=== PATIENT | female | born 1980 | race Caucasian/White ===

== ENCOUNTER 2017-06-09 06:16 | Day surgery (SDC) | payer OTHER ==
[2017-06-09 06:34] VITALS: BMI 28.7
[2017-06-09] MEDS ORDERED: KETAMINE HCL 500 MG/10 ML VIAL ONE (07:11)
[2017-06-09 08:11] VITALS: TEMP 97.5
[2017-06-09 08:38] VITALS: BP 98/71; PULSE 62
== END 2017-06-09 08:54 | disposition home or self-care (01) ==
LOC: FECT 06:16
PROVIDERS: ATTEND Psychiatry & Neurology Psychiatry
PROC: GZB4ZZZ Other Electroconvulsive Therapy (ICD-10-PCS; principal; 2017-06-09 07:00)
DX: F33.2 Major depressive disorder, recurrent severe without psychotic features (principal)
CPT/HCPCS: 90870; 94760

== ENCOUNTER 2017-06-11 05:47 | Day surgery (SDC) | payer OTHER ==
[2017-06-07 10:33] VITALS: BMI 24.7
[2017-06-11] MEDS ORDERED: KETAMINE HCL 500 MG/10 ML VIAL ONE (08:23)
[2017-06-11 09:19] VITALS: TEMP 98
[2017-06-11 09:55] VITALS: BP 108/64; PULSE 62
== END 2017-06-11 10:10 | disposition home or self-care (01) ==
LOC: FECT 05:47
PROVIDERS: ATTEND Psychiatry & Neurology Psychiatry
PROC: GZB4ZZZ Other Electroconvulsive Therapy (ICD-10-PCS; principal; 2017-06-11 07:45)
DX: F33.2 Major depressive disorder, recurrent severe without psychotic features (principal)
CPT/HCPCS: 84703; 90870; 94760

== ENCOUNTER 2017-06-16 05:41 | Day surgery (SDC) | payer OTHER ==
[2017-06-10 15:26] VITALS: BMI 28.7
[2017-06-16] MEDS ORDERED: KETAMINE HCL 500 MG/10 ML VIAL ONE (07:29)
[2017-06-16 08:24] VITALS: TEMP 98.3
[2017-06-16 10:06] VITALS: BP 104/67; PULSE 62
== END 2017-06-16 09:15 | disposition home or self-care (01) ==
LOC: FECT 05:41
PROVIDERS: ATTEND Psychiatry & Neurology Psychiatry
PROC: GZB4ZZZ Other Electroconvulsive Therapy (ICD-10-PCS; principal; 2017-06-16 07:00)
DX: F33.2 Major depressive disorder, recurrent severe without psychotic features (principal)
CPT/HCPCS: 84703; 90870; 94760

== ENCOUNTER 2017-07-02 05:43 | Day surgery (SDC) | payer OTHER ==
[2017-07-02 08:33] VITALS: BMI 28.3
[2017-07-02] MEDS ORDERED: KETAMINE HCL 500 MG/10 ML VIAL ONE (09:28)
[2017-07-02 10:54] VITALS: TEMP 98.2
[2017-07-02 11:04] VITALS: BP 108/64; PULSE 62
== END 2017-07-02 11:05 | disposition home or self-care (01) ==
LOC: FECT 05:43
PROVIDERS: ATTEND Psychiatry & Neurology Psychiatry
PROC: GZB4ZZZ Other Electroconvulsive Therapy (ICD-10-PCS; principal; 2017-07-02 07:00)
DX: F33.2 Major depressive disorder, recurrent severe without psychotic features (principal)
CPT/HCPCS: 84703; 90870; 94760

== ENCOUNTER 2017-07-09 05:47 | Day surgery (SDC) | payer OTHER | END 2017-07-09 10:05 | disposition home or self-care (01) | LOC: FECT 05:47 | PROC: GZB4ZZZ Other Electroconvulsive Therapy (ICD-10-PCS; principal; 2017-07-09) | DX: F33.2 Major depressive disorder, recurrent severe without psychotic features (principal) | CPT/HCPCS: 84703; 90870; 94760 ==

== ENCOUNTER 2017-07-19 07:53 | Day surgery (SDC) | payer OTHER ==
[2017-07-19 08:18] VITALS: BMI 25.6
[2017-07-19] MEDS ORDERED: KETAMINE HCL 500 MG/10 ML VIAL ONE (08:40)
[2017-07-19 10:24] VITALS: TEMP 98.2
[2017-07-19 11:27] VITALS: BP 108/52; PULSE 56
== END 2017-07-19 10:30 | disposition home or self-care (01) ==
LOC: FECT 07:53
PROVIDERS: ATTEND Psychiatry & Neurology Psychiatry
PROC: GZB4ZZZ Other Electroconvulsive Therapy (ICD-10-PCS; principal; 2017-07-19 08:15)
DX: F33.2 Major depressive disorder, recurrent severe without psychotic features (principal)
CPT/HCPCS: 84703; 90870; 94760

== ENCOUNTER 2017-08-03 05:41 | Day surgery (SDC) | payer OTHER ==
[2017-08-03] MEDS ORDERED: ACETAMINOPHEN 325 MG TABLET (FP) PO PRN (07:18)
[2017-08-03] MEDS ORDERED: ONDANSETRON 4 MG/2 ML VIAL IVPUSH PRN (07:18)
[2017-08-03 08:00] VITALS: BMI 26.3
[2017-08-03] MEDS ORDERED: KETAMINE HCL 500 MG/10 ML VIAL ONE (08:55)
[2017-08-03 10:02] VITALS: TEMP 97.8
[2017-08-03 10:49] VITALS: BP 100/62; PULSE 51
== END 2017-08-03 10:53 | disposition home or self-care (01) ==
LOC: FECT 05:41
PROVIDERS: ATTEND Psychiatry & Neurology Psychiatry
PROC: GZB4ZZZ Other Electroconvulsive Therapy (ICD-10-PCS; principal; 2017-08-03 07:00)
DX: F33.2 Major depressive disorder, recurrent severe without psychotic features (principal)
CPT/HCPCS: 84703; 90870; 94760

== ENCOUNTER 2019-01-09 06:41 | Day surgery (SDC) | payer OTHER ==
--- NOTE | 2019-01-09 07:28 | HP ---
CHIEF COMPLAINT: MDD PCP: Dr. Nolan Morgan Primary Psychiatrist: Dr. Castro HISTORY OF PRESENT ILLNESS: 38 year old F with h/o depression presents for ECT therapy. Last session July 2017. Recent Events: no major events. Patient reports continued depressive symptoms, + SI without active plan. She also suffers from insomnia and decreased appetite. PAST MEDICAL HISTORY: MDD PAST SURGICAL HISTORY: none Social History: Smoking: denies Alcohol: denies Drugs: denies Allergies: NKDA EKG 01/09/2019: NSR 76bpm, no acute changes Labs: on file (10/07/2018) Urine HCG 01/09/2019: negative FMHX Mother alive (60) well Father alive ( 60) HTN Sister alive (30) well Sister alive (38) well Brother alive (28) well Brother alive (25) well Brother alive (22) well HOME MEDICATIONS: Home Medications Medication Instructions Recorded Ergocalciferol (Vitamin D2) 2,000 unit PO DAILY 06/04/17 [Vitamin D2] Multivitamins [Multivit ([facility] 1 tab PO DAILY 06/04/17 Formulary)] Cannabidiol (Cbd) Extract 0.25 mg PO BID 01/06/19 [Epidiolex] clonazePAM [Klonopin -] 0.5 mg PO PRN PRN 01/06/19 REVIEW OF SYSTEMS CONSTITUTIONAL: Absent: fever, chills, diaphoresis, generalized weakness, malaise, loss of appetite, weight change HEENT: Absent: rhinorrhea, nasal congestion, throat pain, throat swelling, difficulty swallowing, mouth swelling, ear pain, eye pain, visual changes CARDIOVASCULAR: Absent: chest pain, syncope, palpitations, irregular heart rate, lightheadedness , peripheral edema RESPIRATORY: Absent: cough, shortness of breath, dyspnea with exertion, orthopnea, wheezing, stridor, hemoptysis GASTROINTESTINAL: Absent: abdominal pain, abdominal distension, nausea, vomiting, diarrhea, constipation, melena, hematochezia GENITOURINARY: Absent: dysuria, frequency, urgency, hesitancy, hematuria, flank pain, genital pain MUSCULOSKELETAL: Absent: myalgia, arthralgia, joint swelling, back pain, neck pain SKIN: Absent: rash, itching, pallor HEMATOLOGIC/IMMUNOLOGIC: Absent: easy bleeding, easy bruising, lymphadenopathy, frequent infections ENDOCRINE: Absent: unexplained weight gain, unexplained weight loss, heat intolerance, cold intolerance NEUROLOGIC: Absent: headache, focal weakness or paresthesias, dizziness, unsteady gait, seizure, mental status changes, bladder or bowel incontinence PHYSICAL EXAMINATION: GENERAL: Awake, alert, and fully oriented, in no acute distress. HEAD: Normal with no signs of trauma. EYES: Pupils equal, round and reactive to light, sclera anicteric, conjunctiva clear. LUNGS: Breath sounds equal, clear to auscultation bilaterally. No wheezes, and no crackles. No accessory muscle use. HEART: Regular rate and rhythm, normal S1 and S2 ABDOMEN: Soft, nontender, not distended MUSCULOSKELETAL: Normal range of motion at all joints. No bony deformities or tenderness. No CVA tenderness. UPPER EXTREMITIES: 2+ pulses, warm, well-perfused. No cyanosis. No clubbing. No peripheral edema. LOWER EXTREMITIES: 2+ pulses, warm, well-perfused. No calf tenderness. No peripheral edema. NEUROLOGICAL: Cranial nerves II-XII intact. Speech slow and pressured. ASSESSMENT/PLAN: 38 year old F with longstanding major depressive disorder, presents today for ECT due to progressive symptoms. Patient medically stable to undergo ECT. Cardiac --no cardiac history --Revised Cardiac Risk Index for Pre-Operative Risk: 0 points, 0.4% risk of major cardiac event Pulmonary --no pulmonary history Neurological --no neurological or neurosurgical history; no history of trauma Anesthesia --no reported problems with anesthesia ECT is a low risk procedure. The relative benefits of the planned procedure outweigh the relative risks for this patient at this time. Problem List - Problem (1) MDD (major depressive disorder) Assessment/Plan: stable for ECT today Code(s): F32.9 - MAJOR DEPRESSIVE DISORDER, SINGLE EPISODE, UNSPECIFIED Qualifiers: Major depression recurrence: recurrent Active/Remission status: currently active Major depression episode severity: severe Visit type - Emergency Visit Emergency Visit: No - New Patient This patient is new to me today: Yes Date on this admission: 01/09/19 - Critical Care Critical Care patient: No
[2019-01-09 07:40] VITALS: BMI 33.7
[2019-01-09] MEDS ORDERED: KETAMINE HCL 500 MG/10 ML VIAL ONE (08:29)
[2019-01-09 09:35] VITALS: TEMP 98.6
[2019-01-09 10:52] VITALS: BP 124/76; PULSE 76
--- NOTE | 2019-01-09 15:52 | EKG ---
Test Reason : Blood Pressure : / mmHG Vent. Rate : 076 BPM Atrial Rate : 076 BPM P-R Int : 144 ms QRS Dur : 086 ms QT Int : 398 ms P-R-T Axes : 055 050 001 degrees QTc Int : 447 ms NORMAL SINUS RHYTHM POSSIBLE LEFT ATRIAL ENLARGEMENT CANNOT RULE OUT ANTERIOR INFARCT , AGE UNDETERMINED ABNORMAL ECG WHEN COMPARED WITH ECG OF 07-JUN-2017 06:52, T WAVE VARIATION Confirmed by CODI ENCARNACION, RUDOLPH ([id number]) on 01/09/2019 3:52:28 PM Referred By: Efrem Simmons Confirmed By:RUDOLPH KINCAID MD
== END 2019-01-09 10:30 | disposition home or self-care (01) ==
LOC: FECT 06:41
PROVIDERS: ATTEND Psychiatry & Neurology Psychiatry
PROC: GZB4ZZZ Other Electroconvulsive Therapy (ICD-10-PCS; principal; 2019-01-09 08:00)
DX: F33.2 Major depressive disorder, recurrent severe without psychotic features (principal)
CPT/HCPCS: 84703; 90870; 93005; 94760

== ENCOUNTER 2019-01-11 05:46 | Day surgery (SDC) | payer OTHER ==
[2019-01-11 07:14] VITALS: TEMP 98.1; BMI 33.7
[2019-01-11] MEDS ORDERED: KETAMINE HCL 500 MG/10 ML VIAL ONE (07:45)
[2019-01-11] MEDS ORDERED: ACETAMINOPHEN 500 MG TABLET (FP) PO PRN (07:59)
[2019-01-11] MEDS ORDERED: PROMETHAZINE HCL 25 MG/1 ML VIAL IVPUSH PRN (07:59)
[2019-01-11] MEDS ORDERED: LACTATED RINGERS SOLUTION 1,000 ML IV SCH (08:00)
[2019-01-11] MEDS ORDERED: LORazepam 0.5 MG TABLET ONE (09:30)
[2019-01-11 11:36] VITALS: BP 116/64; PULSE 68
== END 2019-01-11 11:00 | disposition home or self-care (01) ==
LOC: FECT 05:46
PROVIDERS: ATTEND Psychiatry & Neurology Psychiatry
PROC: GZB4ZZZ Other Electroconvulsive Therapy (ICD-10-PCS; principal; 2019-01-11 07:15)
DX: F32.9 Major depressive disorder, single episode, unspecified (principal)
CPT/HCPCS: 90870; 94760

== ENCOUNTER 2019-01-13 05:42 | Day surgery (SDC) | payer OTHER ==
[2019-01-09 10:08] VITALS: BMI 33.6
[2019-01-13] MEDS ORDERED: KETAMINE HCL 500 MG/10 ML VIAL ONE (07:47)
[2019-01-13 09:22] VITALS: TEMP 97.8
[2019-01-13] MEDS ORDERED: LORazepam 0.5 MG TABLET ONE (09:30)
[2019-01-13 09:42] VITALS: BP 102/65; PULSE 87
== END 2019-01-13 10:00 | disposition home or self-care (01) ==
LOC: FECT 05:42
PROVIDERS: ATTEND Psychiatry & Neurology Psychiatry
PROC: GZB4ZZZ Other Electroconvulsive Therapy (ICD-10-PCS; principal; 2019-01-13 07:30)
DX: F32.9 Major depressive disorder, single episode, unspecified (principal)
CPT/HCPCS: 81025; 90870; 94760

== ENCOUNTER 2019-01-19 05:52 | Day surgery (SDC) | payer OTHER ==
[2019-01-19 06:36] VITALS: BMI 33.6
[2019-01-19] MEDS ORDERED: KETAMINE HCL 500 MG/10 ML VIAL ONE (07:12)
[2019-01-19 09:28] VITALS: TEMP 98.4
[2019-01-19] MEDS ORDERED: LORazepam 0.5 MG TABLET ONE (09:52)
[2019-01-19] MEDS ORDERED: ACETAMINOPHEN 325 MG TABLET (FP) PO PRN (10:14)
[2019-01-19 11:00] VITALS: BP 115/66; PULSE 61
== END 2019-01-19 10:15 | disposition home or self-care (01) ==
LOC: FECT 05:52
PROVIDERS: ATTEND Psychiatry & Neurology Psychiatry
PROC: GZB4ZZZ Other Electroconvulsive Therapy (ICD-10-PCS; principal; 2019-01-19 08:30)
DX: F33.2 Major depressive disorder, recurrent severe without psychotic features (principal)
CPT/HCPCS: 81025; 90870; 94760

== ENCOUNTER 2019-01-20 06:16 | Day surgery (SDC) | payer OTHER ==
[2019-01-20 06:54] VITALS: BMI 33.6
[2019-01-20] MEDS ORDERED: KETAMINE HCL 500 MG/10 ML VIAL ONE (07:31)
[2019-01-20] MEDS ORDERED: LACTATED RINGERS SOLUTION 1,000 ML IV SCH (08:00)
[2019-01-20 08:46] VITALS: TEMP 98.5
[2019-01-20 08:51] VITALS: BP 121/71; PULSE 78
== END 2019-01-20 09:45 | disposition home or self-care (01) ==
LOC: FECT 06:16
PROVIDERS: ATTEND Psychiatry & Neurology Psychiatry
PROC: GZB4ZZZ Other Electroconvulsive Therapy (ICD-10-PCS; principal; 2019-01-20 08:30)
DX: F33.2 Major depressive disorder, recurrent severe without psychotic features (principal)
CPT/HCPCS: 90870; 94760

== ENCOUNTER 2019-01-23 07:44 | Day surgery (SDC) | payer OTHER ==
[2019-01-23 06:42] VITALS: BMI 33.6
[2019-01-23] MEDS ORDERED: KETAMINE HCL 500 MG/10 ML VIAL ONE (07:46)
[2019-01-23 08:59] VITALS: TEMP 97.5
[2019-01-23 09:33] VITALS: BP 110/70; PULSE 73
== END 2019-01-23 09:50 | disposition home or self-care (01) ==
LOC: FECT 07:44
PROVIDERS: ATTEND Psychiatry & Neurology Psychiatry
PROC: GZB4ZZZ Other Electroconvulsive Therapy (ICD-10-PCS; principal; 2019-01-23 07:30)
DX: F33.2 Major depressive disorder, recurrent severe without psychotic features (principal)
CPT/HCPCS: 81025; 90870; 94760

== ENCOUNTER 2019-01-25 05:31 | Day surgery (SDC) | payer OTHER ==
[2019-01-25] MEDS: LORazepam 0.5 MG TABLET ONE ×2 (06:40→06:54)
[2019-01-25 06:47] VITALS: BMI 32.8
[2019-01-25] MEDS ORDERED: KETAMINE HCL 500 MG/10 ML VIAL ONE (07:10)
[2019-01-25 07:11] VITALS: TEMP 98
[2019-01-25 09:09] VITALS: BP 106/60; PULSE 67
== END 2019-01-25 09:15 | disposition home or self-care (01) ==
LOC: FECT 05:31
PROVIDERS: ATTEND Psychiatry & Neurology Psychiatry
PROC: GZB4ZZZ Other Electroconvulsive Therapy (ICD-10-PCS; principal; 2019-01-25 07:15)
DX: F32.9 Major depressive disorder, single episode, unspecified (principal)
CPT/HCPCS: 90870; 94760

== ENCOUNTER 2019-01-27 05:25 | Day surgery (SDC) | payer OTHER ==
[2019-01-27] MEDS ORDERED: KETAMINE HCL 500 MG/10 ML VIAL ONE ×2 (08:47→08:55)
[2019-01-27 10:08] VITALS: TEMP 97.9
[2019-01-27 11:30] VITALS: BP 114/70; PULSE 72
== END 2019-01-27 11:00 | disposition home or self-care (01) ==
LOC: FECT 05:25
PROVIDERS: ATTEND Psychiatry & Neurology Psychiatry
PROC: GZB4ZZZ Other Electroconvulsive Therapy (ICD-10-PCS; principal; 2019-01-27 07:15)
DX: F32.9 Major depressive disorder, single episode, unspecified (principal)
CPT/HCPCS: 84703; 90870; 94760

== ENCOUNTER 2019-01-30 05:45 | Day surgery (SDC) | payer OTHER ==
[2019-01-30 06:54] VITALS: BMI 32.3
[2019-01-30] MEDS ORDERED: KETAMINE HCL 500 MG/10 ML VIAL ONE (07:21)
[2019-01-30] MEDS ORDERED: ACETAMINOPHEN 325 MG TABLET (FP) PO PRN (07:44)
[2019-01-30] MEDS ORDERED: ONDANSETRON 4 MG/2 ML VIAL IVPUSH PRN (07:44)
[2019-01-30] MEDS ORDERED: LACTATED RINGERS SOLUTION 1,000 ML IV SCH (07:45)
[2019-01-30 08:48] VITALS: TEMP 98.3
[2019-01-30 09:45] VITALS: BP 107/62; PULSE 68
== END 2019-01-30 09:47 | disposition home or self-care (01) ==
LOC: FECT 05:45
PROVIDERS: ATTEND Psychiatry & Neurology Psychiatry
PROC: GZB4ZZZ Other Electroconvulsive Therapy (ICD-10-PCS; principal; 2019-01-30 07:15)
DX: F33.2 Major depressive disorder, recurrent severe without psychotic features (principal)
CPT/HCPCS: 90870; 94760

== ENCOUNTER 2019-02-01 05:42 | Day surgery (SDC) | payer OTHER ==
[2019-02-01 06:46] VITALS: BMI 32.3
[2019-02-01] MEDS ORDERED: KETAMINE HCL 500 MG/10 ML VIAL ONE (07:31)
[2019-02-01 07:57] VITALS: TEMP 98.3
[2019-02-01 09:32] VITALS: BP 104/67; PULSE 86
== END 2019-02-01 09:15 | disposition home or self-care (01) ==
LOC: FECT 05:42
PROVIDERS: ATTEND Psychiatry & Neurology Psychiatry
PROC: GZB4ZZZ Other Electroconvulsive Therapy (ICD-10-PCS; principal; 2019-02-01 07:00)
DX: F32.9 Major depressive disorder, single episode, unspecified (principal)
CPT/HCPCS: 81025; 90870; 94760

== ENCOUNTER 2019-02-03 05:35 | Day surgery (SDC) | payer OTHER ==
[2019-02-03 07:36] VITALS: BMI 32.3
[2019-02-03] MEDS ORDERED: KETAMINE HCL 500 MG/10 ML VIAL ONE (08:12)
[2019-02-03 09:22] VITALS: TEMP 97.7
[2019-02-03 09:45] VITALS: BP 101/69; PULSE 72
== END 2019-02-03 09:50 | disposition home or self-care (01) ==
LOC: FECT 05:35
PROVIDERS: ATTEND Psychiatry & Neurology Psychiatry
PROC: GZB4ZZZ Other Electroconvulsive Therapy (ICD-10-PCS; principal; 2019-02-03 07:00)
DX: F33.2 Major depressive disorder, recurrent severe without psychotic features (principal)
CPT/HCPCS: 90870; 94760

== ENCOUNTER 2019-02-06 05:45 | Day surgery (SDC) | payer OTHER ==
[2019-01-23 17:31] VITALS: BMI 33.6
[2019-02-06 09:18] VITALS: TEMP 98.5
[2019-02-06 09:21] VITALS: BP 112/74; PULSE 84
--- NOTE | 2019-02-06 18:42 | HP ---
CHIEF COMPLAINT: Major depressive disorder PCP: Dr. Nolan Morgan Primary Psychiatrist: Dr. Castro HISTORY OF PRESENT ILLNESS: 38 year-old female with a PMH significant for major depressive disorder. ECT treatments date to 2018. Presents today for ECT. Recent events * none reported PAST MEDICAL HISTORY: Major depressive disorder PAST SURGICAL HISTORY: None reported Social History: lives with Smoking: denies Alcohol: denies Drugs: denies Allergies: NKDA Family history: Mother alive (60) well Father alive ( 60) HTN Sister alive (30) well Sister alive (38) well Brother alive (28) well Brother alive (25) well Brother alive (22) well Allergies No Known Drug Allergies Allergy (Verified 06/10/17 14:55) HOME MEDICATIONS: Home Medications Medication Instructions Recorded clonazePAM [Klonopin -] 0.5 mg PO PRN PRN 01/06/19 Aripiprazole [Abilify] 5 mg PO DAILY 01/25/19 Sertraline HCl [Zoloft] 50 mg PO DAILY 01/25/19 REVIEW OF SYSTEMS CONSTITUTIONAL: Absent: fever, chills, diaphoresis, generalized weakness, malaise, loss of appetite, weight change HEENT: Absent: rhinorrhea, nasal congestion, throat pain, throat swelling, difficulty swallowing, mouth swelling, ear pain, eye pain, visual changes CARDIOVASCULAR: Absent: chest pain, syncope, palpitations, irregular heart rate, lightheadedness , peripheral edema RESPIRATORY: Absent: cough, shortness of breath, dyspnea with exertion, orthopnea, wheezing, stridor, hemoptysis GASTROINTESTINAL: Absent: abdominal pain, abdominal distension, nausea, vomiting, diarrhea, constipation, melena, hematochezia GENITOURINARY: Absent: dysuria, frequency, urgency, hesitancy, hematuria, flank pain, genital pain MUSCULOSKELETAL: Absent: myalgia, arthralgia, joint swelling, back pain, neck pain SKIN: Absent: rash, itching, pallor HEMATOLOGIC/IMMUNOLOGIC: Absent: easy bleeding, easy bruising, lymphadenopathy, frequent infections ENDOCRINE: Absent: unexplained weight gain, unexplained weight loss, heat intolerance, cold intolerance NEUROLOGIC: Absent: headache, focal weakness or paresthesias, dizziness, unsteady gait, seizure, mental status changes, bladder or bowel incontinence PHYSICAL EXAMINATION Vital Signs - 24 hr 02/06/19 02/06/19 02/06/19 07:21 08:20 08:25 Temperature 98.2 F Pulse Rate 85 91 H 102 H Respiratory 18 14 16 Rate Blood Pressure 103/69 121/76 132/95 O2 Sat by Pulse 98 98 98 Oximetry (%) 02/06/19 02/06/19 02/06/19 08:30 08:35 08:50 Temperature Pulse Rate 92 H 89 87 Respiratory 14 17 17 Rate Blood Pressure 123/77 127/77 126/71 O2 Sat by Pulse 97 98 100 Oximetry (%) 02/06/19 02/06/19 02/06/19 09:00 09:30 10:00 Temperature 98.5 F 98.5 F 98.5 F Pulse Rate 81 84 84 Respiratory 18 18 18 Rate Blood Pressure 118/77 112/74 112/74 O2 Sat by Pulse 99 99 Oximetry (%) GENERAL: Awake, alert, and fully oriented, in no acute distress. HEAD: Normal with no signs of trauma. EYES: Pupils equal, round and reactive to light, sclera anicteric, conjunctiva clear. LUNGS: Breath sounds equal, clear to auscultation bilaterally. No wheezes, and no crackles. No accessory muscle use. HEART: Regular rate and rhythm, normal S1 and S2 ABDOMEN: Soft, nontender, not distended MUSCULOSKELETAL: Normal range of motion at all joints. No bony deformities or tenderness. No CVA tenderness. UPPER EXTREMITIES: 2+ pulses, warm, well-perfused. No cyanosis. No clubbing. No peripheral edema. LOWER EXTREMITIES: 2+ pulses, warm, well-perfused. No calf tenderness. No peripheral edema. NEUROLOGICAL: Cranial nerves II-XII intact. Normal speech. ASSESSMENT/PLAN: 38 year-old female with a PMH significant for major depressive disorder. Presents today for ECT. Cardiac --no cardiac history --Revised Cardiac Risk Index for Pre-Operative Risk: 0 points, 0.4% risk of major cardiac event Pulmonary --no pulmonary history Neurological --no neurological or neurosurgical history; no history of trauma Anesthesia --no reported problems with anesthesia ECT is a low risk procedure. The relative benefits of the planned procedure outweigh the relative risks for this patient at this time. Visit type - Emergency Visit Emergency Visit: No - New Patient This patient is new to me today: Yes Date on this admission: 02/06/19 - Critical Care Critical Care patient: No
== END 2019-02-06 10:00 | disposition home or self-care (01) ==
LOC: FECT 05:45
PROVIDERS: ATTEND Psychiatry & Neurology Psychiatry
PROC: GZB4ZZZ Other Electroconvulsive Therapy (ICD-10-PCS; principal; 2019-02-06 07:15)
DX: F33.2 Major depressive disorder, recurrent severe without psychotic features (principal)
CPT/HCPCS: 81025; 90870; 94760

== ENCOUNTER 2019-02-08 05:40 | Day surgery (SDC) | payer OTHER ==
[2019-02-08 07:18] VITALS: TEMP 98.4; BMI 33.6
[2019-02-08] MEDS ORDERED: KETAMINE HCL 500 MG/10 ML VIAL ONE (07:56)
[2019-02-08 10:04] VITALS: BP 108/71; PULSE 66
== END 2019-02-08 09:45 | disposition home or self-care (01) ==
LOC: FECT 05:40
PROVIDERS: ATTEND Psychiatry & Neurology Psychiatry
PROC: GZB4ZZZ Other Electroconvulsive Therapy (ICD-10-PCS; principal; 2019-02-08 07:00)
DX: F33.2 Major depressive disorder, recurrent severe without psychotic features (principal)
CPT/HCPCS: 90870; 94760

== ENCOUNTER 2020-03-07 09:23 | Day surgery (SDC) | payer OTHER ==
[2020-03-06 13:22] VITALS: BMI 29.2
[2020-03-07 10:40] VITALS: TEMP 98.5
[2020-03-07] MEDS ORDERED: KETAMINE HCL 500 MG/10 ML VIAL ONE (11:45)
[2020-03-07] MEDS ORDERED: ONDANSETRON 4 MG/2 ML VIAL IVPUSH PRN (12:14)
[2020-03-07] MEDS ORDERED: LACTATED RINGERS SOLUTION 1,000 ML IV SCH (12:15)
[2020-03-07 13:15] VITALS: BP 120/66; PULSE 64
== END 2020-03-07 13:17 | disposition home or self-care (01) ==
LOC: FECT 09:23
PROVIDERS: ATTEND Psychiatry & Neurology Psychiatry
PROC: GZB4ZZZ Other Electroconvulsive Therapy (ICD-10-PCS; principal; 2020-03-07 11:00)
DX: F32.9 Major depressive disorder, single episode, unspecified (principal)
CPT/HCPCS: 84703; 90870; 94760; C9803; U0003

== ENCOUNTER 2020-03-12 06:44 | Day surgery (SDC) | payer OTHER ==
[2020-03-06 14:30] VITALS: BMI 29.2
[~2020-03-12 06:44] MED LIST: ACETAMINOPHEN 325 MG TABLET (FP) PO PRN; LACTATED RINGERS SOLUTION 1,000 ML IV SCH; PROMETHAZINE HCL 25 MG/1 ML VIAL IVPUSH PRN
[2020-03-12] MEDS ORDERED: KETAMINE HCL 500 MG/10 ML VIAL ONE (07:56)
[2020-03-12 11:42] VITALS: TEMP 98.8
[2020-03-12 11:49] VITALS: BP 108/72; PULSE 80
== END 2020-03-12 10:05 | disposition home or self-care (01) ==
LOC: FECT 06:44
PROVIDERS: ATTEND Psychiatry & Neurology Psychiatry
PROC: 3E0234Z Introduction of Serum, Toxoid and Vaccine into Muscle, Percutaneous Approach (ICD-10-PCS; principal; 2020-03-12 08:30)
DX: F32.9 Major depressive disorder, single episode, unspecified (principal)
CPT/HCPCS: 84703; 90870; 94760; C9803; U0003

== ENCOUNTER 2020-03-14 09:08 | Day surgery (SDC) | payer OTHER ==
[2020-03-12 09:36] VITALS: BMI 29.2
[2020-03-14] MEDS ORDERED: KETAMINE HCL 500 MG/10 ML VIAL ONE (09:40)
[2020-03-14] MEDS ORDERED: ONDANSETRON 4 MG/2 ML VIAL IVPUSH PRN (11:14)
[2020-03-14] MEDS ORDERED: LACTATED RINGERS SOLUTION 1,000 ML IV SCH (11:15)
[2020-03-14 11:26] VITALS: TEMP 98.3
[2020-03-14 11:48] VITALS: BP 112/66; PULSE 70
== END 2020-03-14 11:30 | disposition home or self-care (01) ==
LOC: FECT 09:08
PROVIDERS: ATTEND Psychiatry & Neurology Psychiatry
PROC: GZB4ZZZ Other Electroconvulsive Therapy (ICD-10-PCS; principal; 2020-03-14 10:30)
DX: F33.2 Major depressive disorder, recurrent severe without psychotic features (principal)
CPT/HCPCS: 90870; 94760; C9803; U0003

== ENCOUNTER 2020-03-18 08:51 | Day surgery (SDC) | payer OTHER ==
[2020-03-18 10:01] VITALS: BMI 29.0
[2020-03-18] MEDS ORDERED: KETAMINE HCL 500 MG/10 ML VIAL ONE (10:51)
[2020-03-18 12:43] VITALS: TEMP 98.3
[2020-03-18 13:03] VITALS: BP 110/62; PULSE 67
== END 2020-03-18 13:00 | disposition home or self-care (01) ==
LOC: FECT 08:51
PROVIDERS: ATTEND Psychiatry & Neurology Psychiatry
PROC: GZB4ZZZ Other Electroconvulsive Therapy (ICD-10-PCS; principal; 2020-03-18 10:00)
DX: F32.9 Major depressive disorder, single episode, unspecified (principal)
CPT/HCPCS: 84703; 90870; 94760; C9803; U0003

== ENCOUNTER 2020-03-21 09:18 | Day surgery (SDC) | payer OTHER ==
[2020-03-18 12:16] VITALS: BMI 29.0
[2020-03-21] MEDS ORDERED: KETAMINE HCL 500 MG/10 ML VIAL ONE (10:36)
[2020-03-21 12:21] VITALS: BP 118/66; PULSE 63; TEMP 98.1
== END 2020-03-21 12:40 | disposition home or self-care (01) ==
LOC: FECT 09:18
PROVIDERS: ATTEND Psychiatry & Neurology Psychiatry
PROC: GZB4ZZZ Other Electroconvulsive Therapy (ICD-10-PCS; principal; 2020-03-21 10:30)
DX: F32.9 Major depressive disorder, single episode, unspecified (principal)
CPT/HCPCS: 90870; 94760; C9803; U0003

== ENCOUNTER 2020-03-29 06:45 | Day surgery (SDC) | payer OTHER ==
[2020-03-22 07:27] VITALS: BMI 28.9
[2020-03-29] MEDS ORDERED: KETAMINE HCL 500 MG/10 ML VIAL ONE (07:50)
[2020-03-29 08:45] VITALS: TEMP 98.4
[2020-03-29 09:29] VITALS: BP 120/75; PULSE 69
== END 2020-03-29 09:30 | disposition home or self-care (01) ==
LOC: FECT 06:45
PROVIDERS: ATTEND Psychiatry & Neurology Psychiatry
PROC: GZB4ZZZ Other Electroconvulsive Therapy (ICD-10-PCS; principal; 2020-03-29 07:30)
DX: F32.9 Major depressive disorder, single episode, unspecified (principal)
CPT/HCPCS: 81025; 90870; 94760; C9803; U0003

== ENCOUNTER 2020-04-02 08:21 | Day surgery (SDC) | payer OTHER ==
[2020-03-28 15:28] VITALS: BMI 28.9
[2020-04-02] MEDS ORDERED: KETAMINE HCL 500 MG/10 ML VIAL ONE (09:35)
[2020-04-02] MEDS ORDERED: PROPOFOL 20 ML ONE (09:35)
[2020-04-02 12:01] VITALS: TEMP 98.2
[2020-04-02 12:05] VITALS: BP 112/71
[2020-04-02 12:13] VITALS: PULSE 60
== END 2020-04-02 11:30 | disposition home or self-care (01) ==
LOC: FECT 08:21
PROVIDERS: ATTEND Psychiatry & Neurology Psychiatry
PROC: GZB4ZZZ Other Electroconvulsive Therapy (ICD-10-PCS; principal; 2020-04-02 09:30)
DX: F32.9 Major depressive disorder, single episode, unspecified (principal)
CPT/HCPCS: 84703; 90870; 94760; C9803; U0003

== ENCOUNTER 2020-07-26 06:58 | Day surgery (SDC) | payer OTHER ==
[2020-07-26 07:26] VITALS: BMI 32.4
[2020-07-26] MEDS ORDERED: ONDANSETRON 4 MG/2 ML VIAL IVPUSH PRN (07:39)
[2020-07-26] MEDS ORDERED: LACTATED RINGERS SOLUTION 1,000 ML IV SCH (07:45)
[2020-07-26] MEDS ORDERED: KETAMINE HCL 500 MG/10 ML VIAL ONE (08:05)
[2020-07-26 09:50] VITALS: TEMP 98
[2020-07-26 09:51] VITALS: BP 122/78; PULSE 89
== END 2020-07-26 10:00 | disposition home or self-care (01) ==
LOC: FECT 06:58
PROVIDERS: ATTEND Psychiatry & Neurology Psychiatry
PROC: GZB4ZZZ Other Electroconvulsive Therapy (ICD-10-PCS; principal; 2020-07-26 07:30)
DX: F32.9 Major depressive disorder, single episode, unspecified (principal)
CPT/HCPCS: 81025; 90870; 94760

== ENCOUNTER 2020-08-01 10:23 | Day surgery (SDC) | payer OTHER ==
[2020-08-01 10:44] VITALS: BMI 32.4
[2020-08-01] MEDS ORDERED: KETAMINE HCL 500 MG/10 ML VIAL ONE (11:13)
[2020-08-01 13:06] VITALS: TEMP 99
[2020-08-01 14:30] VITALS: BP 110/70; PULSE 92
== END 2020-08-01 13:30 | disposition home or self-care (01) ==
LOC: FECT 10:23
PROVIDERS: ATTEND Psychiatry & Neurology Psychiatry
PROC: GZB4ZZZ Other Electroconvulsive Therapy (ICD-10-PCS; principal; 2020-08-01 11:15)
DX: F32.9 Major depressive disorder, single episode, unspecified (principal)
CPT/HCPCS: 84703; 90870; 94760

== ENCOUNTER 2020-08-15 06:40 | Day surgery (SDC) | payer OTHER ==
[2020-08-08 08:58] VITALS: BMI 32.3
[2020-08-15] MEDS ORDERED: SUCCINYLCHOLINE CHLORIDE 200 MG/10 ML SYRINGE ONE (10:48)
[2020-08-15] MEDS ORDERED: PROPOFOL 20 ML ONE (10:48)
[2020-08-15] MEDS ORDERED: KETAMINE HCL 200 MG/20 ML VIAL ONE (10:49)
[2020-08-15 11:52] VITALS: TEMP 97.7
[2020-08-15] MEDS ORDERED: ACETAMINOPHEN 325 MG TABLET (FP) ONE (12:16)
[2020-08-15 12:52] VITALS: BP 114/75; PULSE 69
== END 2020-08-15 13:00 | disposition home or self-care (01) ==
LOC: FECT 06:40
PROVIDERS: ATTEND Psychiatry & Neurology Psychiatry
PROC: GZB4ZZZ Other Electroconvulsive Therapy (ICD-10-PCS; principal; 2020-08-15 07:30)
DX: F33.2 Major depressive disorder, recurrent severe without psychotic features (principal)
CPT/HCPCS: 81025; 90870; 94760

== ENCOUNTER → 2020-08-23 | Day surgery (SDC) | payer OTHER ==
[2020-08-23 09:34] VITALS: BMI 32.8
[2020-08-23 12:07] VITALS: BP 117/71; PULSE 65; TEMP 97.6
== END | disposition home or self-care (01) ==
LOC: FECT 09:04
PROVIDERS: ATTEND Psychiatry & Neurology Psychiatry
PROC: GZB4ZZZ Other Electroconvulsive Therapy (ICD-10-PCS; principal; 2020-08-23 10:00)
DX: F33.2 Major depressive disorder, recurrent severe without psychotic features (principal)
CPT/HCPCS: 84703; 90870; 94760

== ENCOUNTER 2020-09-02 11:44 | Day surgery (SDC) | payer OTHER ==
[2020-09-02] MEDS ORDERED: SUCCINYLCHOLINE CHLORIDE 200 MG/10 ML SYRINGE ONE ×2 (13:28)
[2020-09-02 15:02] VITALS: TEMP 97.8
[2020-09-02 15:27] VITALS: BP 106/64; PULSE 64
== END 2020-09-02 15:26 | disposition home or self-care (01) ==
LOC: FECT 11:44
PROVIDERS: ATTEND Psychiatry & Neurology Psychiatry
PROC: GZB4ZZZ Other Electroconvulsive Therapy (ICD-10-PCS; principal; 2020-09-02 13:30)
DX: F33.2 Major depressive disorder, recurrent severe without psychotic features (principal)
CPT/HCPCS: 84703; 90870; 94760